=== PATIENT | female | born 1950 | race Caucasian/White ===

== ENCOUNTER 2018-02-28 06:04 | Inpatient (IN) ==
--- NOTE | 2018-02-25 16:29 | MH ---
cc: Rudi Pandey James E MD DATE OF ADMISSION: 02/28/2018 ADMITTING DIAGNOSIS: Lumbar degenerative disk disease. HISTORY OF PRESENT ILLNESS: This is a 67-year-old female who presented to us for evaluation of chronic low back pain and left leg pain. She states that she has had chronic low back pain since she was 26 years old and would have exacerbations and periods where pain would resolve. She states 2-1/2 years ago, she started to develop left leg pain that started in the left buttocks and radiated into the posterior aspect of the left leg and into the left lateral foot. She states the leg pain is affecting her life. She states the left leg becomes so painful with walking that she starts to drag the leg and she is looking for the next available place to sit down. She has had physical therapy. She has been to the pain management and had 10 injections and had discussed a possible spinal stimulator, but they wanted her to see a surgeon first. She has urge incontinence. She has paresthesias in the left lateral calf and lateral aspect of her foot. Her pain resolves if she sits or lies down. If she walks flexed on her cart, this allows her to walk further. PAST MEDICAL HISTORY: Significant for hypothyroidism, migraines, anxiety. MEDICATIONS: She is on 1. Bupropion 150 mg extended release. 2. Butalbital compound with codeine 30/50/325/40 mg. 3. Duloxetine 30 mg delayed release. 4. Fluorouracil 5% topical cream. 5. Gabapentin 300 mg. 6. Liberty 5/325. 7. Ibuprofen 800 mg. This was placed on hold prior to surgical intervention. 8. Levothyroxine 137 mcg. 9. Medrol progesterone 2.5 mg. 10. Meloxicam 15 mg. This was placed on hold prior to surgical intervention. 11. Methocarbamol 500 mg. 12. Potassium citrate 10 mEq extended release. 13. Sertraline 100 mg. 14. Sumatriptan 100 mg. ALLERGIES: SHE HAS NO KNOWN DRUG ALLERGIES. SOCIAL HISTORY: She has never been a smoker. FAMILY HISTORY: Noncontributory. REVIEW OF SYSTEMS: CONSTITUTIONAL: She denies any fever or chills. Ears, Nose and Throat: No pharyngitis, exudate, or bloody drainage from her nose. CARDIOVASCULAR: She denies any chest pain or palpitations. RESPIRATORY: No cough or shortness of breath. GASTROINTESTINAL: No nausea, vomiting, abdominal pain. GENITOURINARY: No dysuria or hematuria. MUSCULOSKELETAL: Positive for chronic low back pain. INTEGUMENTARY: No rashes or pruritus. NEUROLOGIC: No difficulty with speech or memory. PSYCHIATRIC: Positive for anxiety symptoms ENDOCRINE: No polyuria or polydipsia. HEMATOLOGIC: No bruising or bleeding tendencies. PHYSICAL EXAMINATION: HEENT: Head is normocephalic, atraumatic. NECK: Supple. No carotid bruits. LUNGS: Clear to auscultation bilaterally. HEART: Regular rate and rhythm. Normal S1, S2. No murmurs. ABDOMEN: Soft, positive bowel sounds. She is obese. SKIN: No cyanosis or erythema. MUSCULOSKELETAL: She has left EHL weakness at 4/5, otherwise she has 5/5 strength in the lower extremities. She ambulates without any assistive device. NEUROLOGIC: She is awake, alert, and oriented. Cranial nerves 2-12 are grossly intact. Her speech is fluent. Comprehension is good. Sensation is intact in the upper and lower extremities. Reflexes are diminished in the lower extremities. LABORATORY DATA: An MRI of the lumbar spine revealed a severe L4/L5 spinal stenosis from disk protrusion and facet hypertrophy along with a grade 1 spondylolisthesis with degenerative disk disease. She also has disk degeneration at L2-L3 and L5-S1 with overall mild stenosis. IMPRESSION: A 67-year-old female with a chronic history of low back pain with associated neurogenic claudication symptoms which is affecting more so the left leg. Her symptoms worsen with an upright position and activity. She has very limited ambulatory status and inactivity has led to progressive weight gain, which is aggravating her condition. She has undergone physical therapy as well as multiple bouts of interventional pain management with limited temporary relief. She was seen by orthopedic surgery and recommended surgical intervention and she was seen by us for a second opinion. Her MRI of the lumbar spine revealed severe L4/L5 spinal stenosis from disk protrusion and facet hypertrophy along with a grade 1 spondylolisthesis with degenerative disk disease. She also has disk degeneration at L2-L3 and L5-S1 with overall mild stenosis. PLAN: We have discussed treatment options, which include continued conservative treatment measures with physical therapy and pain management versus surgical intervention. The patient is requesting surgical intervention and we have discussed options, which include a more limited L4/L5 decompressive laminectomy versus an L4/L5 transforaminal decompression with interbody fusion. Both procedures were explained using spine models in the office. Given the degenerative disk disease and associated spondylolisthesis, laminectomy without stabilization risks worsening of the spondylolisthesis and recurrent foraminal stenosis. We have discussed both procedures in detail. We have discussed the risks, benefits, alternatives, and recovery time in great detail of the surgical procedures. No guarantees were given as to the results of either procedure. Given her obesity, she is at an increased risk of nonhealing. We have also discussed other associated risks which include, but are not limited to, bleeding, infection, muscle weakness, voice hoarseness, difficulty swallowing, heart attack, stroke, blood clots, nonfusion, scar tissue formation, among others. The patient states that she understands the procedure as well as the risks involved and she is requesting that we proceed and she was therefore scheduled accordingly. WILFRIDO Zaidi MD ESP/ts , 03:32 PM , 03:44 PM
[2018-02-28] MEDS ORDERED: Gelatin Size 100 Topical Foam ONE (06:45)
[2018-02-28] MEDS ORDERED: Bupivacaine/Epinephrine 0.5% Inj 50 ML Vial ONE (06:45)
[2018-02-28] MEDS ORDERED: Thrombin Topical Soln 5,000 UNIT Vial TOPICAL ONE (06:45)
[2018-02-28] MEDS ORDERED: Vancomycin Inj 1,000 MG in Sodium Chlor 0.9% Inj 250 ML IV.SIG PRN (06:55)
[2018-02-28] MEDS ORDERED: Chlorhexidine Gluconate 2% 1 Pack (2 Cloths) TOPICAL PRN (06:56)
[2018-02-28] MEDS ORDERED: Chlorhexidine Gluconate 2% 1 Pack (2 Cloths) TOPICAL ONE (07:00)
[2018-02-28] MEDS ORDERED: Metoprolol Tartrate 25 MG Tablet PO ONE (07:00)
[2018-02-28] MEDS ORDERED: Sodium Chlor 0.9% Inj 500 ML IV.SIG SCH (07:00)
[2018-02-28] MEDS: Sod Chloride 0.9% Inj 1,000 ML IV.SIG SCH (07:42)
[2018-02-28] MEDS ORDERED: [UNRECOGNIZED DRUG - OTHER] IV.CONT ONE (08:37)
[2018-02-28] MEDS ORDERED: Lidocaine PF 1% Inj 5 ML Syringe OTHER ONE (08:37)
[2018-02-28] MEDS ORDERED: Phenylephrine/NS 1000 MCG/10ML Syringe IV.PUSH ONE (08:37)
[2018-02-28] MEDS ORDERED: Neostigmine Inj 5 MG/5 ML Syringe IV.PUSH ONE (08:37)
[2018-02-28] MEDS ORDERED: Glycopyrrolate Inj 1 MG/5 ML Syringe IV.PUSH ONE (08:37)
[2018-02-28] MEDS ORDERED: DEXTROSE IV.CONT ONE (08:37)
[2018-02-28] MEDS ORDERED: [UNRECOGNIZED DRUG - OTHER] PO PRN (12:46)
[2018-02-28] MEDS ORDERED: Aluminum/Magnesium/Simethacone Susp 30 ML UDC PO PRN (12:49)
[2018-02-28] MEDS ORDERED: Bisacodyl 10 MG Supp RECTAL PRN (12:49)
[2018-02-28] MEDS ORDERED: Menthol 5.8 MG Lozenge BUCCAL PRN (12:49)
[2018-02-28] MEDS ORDERED: Acetaminophen 325 MG Tablet PO PRN (12:49)
[2018-02-28] MEDS ORDERED: Calcium Gluconate Inj 1 GM in Sodium Chlor 0.9% Inj 100 ML IV.SIG PRN (12:49)
[2018-02-28] MEDS ORDERED: Magnesium Sulfate Inj 2 GM in Sodium Chlor 0.9% Inj 96 ML IV.SIG PRN (12:49)
[2018-02-28] MEDS ORDERED: Potassium Chlor 20 mEq Premix 20 MEQ/100 ML PIGGYBACK IV.SIG PRN (12:49)
[2018-02-28] MEDS ORDERED: fentaNYL Citrate Inj 100 MCG/2 ML Ampul ONE (12:53)
--- NOTE | 2018-02-28 13:03 | P.OP ---
- Preoperative Diagnosis (1) Lumbar stenosis with neurogenic claudication (2) Spondylolisthesis, lumbar region (3) Lumbar degenerative disc disease (4) Chronic low back pain with left-sided sciatica (5) Lumbar facet arthropathy Date of procedure: 02/28/18 Procedure: Lumbar L4-5 transforaminal interbody fusion; L4-5 decompressive laminectomy; L4- 5 pedicle screw fixation; L4-5 interbody cage placement; microsurgical technique Anesthesia: GETA Surgeon: Sebas Goldman MD Education Managers: Araceli Anna Estimated blood loss (mL): 150 Operation and Findings: This was a difficult case due to the patient body habitus and morbid obesity. The [id number] details of the procedure, indications, alternatives, risks and potential complications were fully discussed with the patient. The patient fully understood. All the questions were answered. No guarantees were given. The patient voiced requesting the procedure and provided informed consents. The patient was offered the alternative of delaying the procedure and continuing with nonsurgical management. Prior to the procedure, the surgical incision was marked in the preoperative surgical holding room, and the procedure, risks, and potential complications revisited with the patient. Placement of electrodes for intraoperative neurophysiological monitoring was completed. The patient was taken to the operative room, and following induction of general anesthesia, endotracheal intubation was performed. A Vernon catheter, bilateral SABINA hose and sequential compression devices were placed and kept throughout the procedure. The patient was positioned prone, over a Wily table over a Rudolph frame. All pressure in the preoperative surgical holding room points were carefully padded. The eyes were tapped shut after ointment was applied by the anesthesiologist to prevent corneal abrasion. A Familia hugger was placed over the exposed lower body to maintain control of the core body temperature. The lumbar region was prepped and draped in the usual sterile fashion. Once the patient was positioned, a localizing cross-table lateral x-ray was performed with a C-arm. A paramedian small incisions was outlined on the skin approximately 3cm left from the midline. The skin incision made with a #10 blade. Small bleeders were controlled with the cautery. The dissection was then carried out into deeper planes and through the thoracolumbar fascia with a Bovie. The intermuscular septum was identified and the mucles were blunted dissected along the septum. The facets and transverse process of left L4-5 levels were exposed and the proper anatomical landmarks were identified. A microsurgical self-retaining retractor was placed on the incision, and a localizing lateralizing cross-table x-ray was performed. Following initiation of general endotracheal anesthesia, the patient had a Vernon catheter placed along with sequential compression devices. A gram of vancomycin was administered intravenously and he was turned in a prone position on a Rudolph frame, on a Wily table, and all pressure points adequately padded. The lumbosacral region was then prepped with Chloraprep and sterilely draped with Ioban along the usual sterile draping. A left paraspinal skin incision was then made extending from the L4-L5 level after infiltrating the skin with 0.5% Marcaine with epinephrine solution extending down through the fascia. The muscle fibers were split using avascular fatty plane and detached from the underlying facets, transverse process and lateral portion of lamina on the right side and a self-retaining retractor used for exposure. Intraoperative fluoroscopy was also used for level of confirmation along with microscope magnification for further dissection. There was significant facet and ligamentum flavum hypertrophy noted at the L4-5 levels along with associated spondylolisthesis. Left L4-5 facet was resected with a drill bit along with the lamina and there was severe foraminal and lateral recess stenosis from hypertrophied ligamentum flavum and facet which were decompressed bilaterally through the unilateral approach. There was significant disc height collapse along with disc protrusion also leading to the foraminal stenosis. Epidural hemostasis was achieved with bipolar cautery and Gelfoam with thrombin. Subsequently entered into the disc space at the L4-5 level with a #15 blade and neftaly were used for discectomy. I then placed PEEK cage packed with local autograft bone and more local autograft bone was packed adjacent to the cage in interspace for added interbody fusion. With placement of the cage, I was able to distract the interspace and opened up the foramen further bilaterally. Subsequently in order to facilitate the fusion and provide stabilization, pedicle screw fixation was undertaken using [employer] spine screws on entry point at the left L4-5 levels at the junction of the transverse process and facet. Subsequently using AP and lateral fluoroscopy tap and screw placement. The screws were then connected with a kiran and locked in place with caps. The construct appeared very secure at this point. The area was then copiously irrigated with Vancomycin solution and powder. The retractors were removed and the bipolar cautery used for hemostasis. The muscle fascia was then approximated using 2-0 Vicryl interrupted stitches and then 3-0 Vicryl subcuticular stitches also placed in interrupted fashion. The final skin closure was completed with Mastisol and Steri-Strips. A sterile dressing was then applied. The patient then turned in supine position, extubated and taken to recovery room. There were no intraoperative complications. All sponge and needle counts were correct at the end of procedure. Estimated blood loss about 150 ml.
[2018-02-28] MEDS ORDERED: *morphine SULFATE 4 MG/ML PERIprocedure ONLY ONE ×2 (13:07→13:18)
[2018-02-28] MEDS ORDERED: *Ondansetron Inj 4 MG/2 ML Vial PERIprocedural Use ONLY ONE (13:18)
--- NOTE | 2018-02-28 13:22 | XR ---
EXAM DATE: 02/28/2018 12:00 AM EDT AGE/SEX: 67 years / Female INDICATIONS: Post-op L4-L5 posterior lumbar fusion. CLINICAL DATA: This is the patient's initial encounter. Patient reports that signs and symptoms have been present for 1 day and indicates a pain score of Nonresponsive. MEDICAL/SURGICAL HISTORY: Non-responsive. Non-responsive. COMPARISON: No prior exams available for comparison. CONCLUSION: Fluoroscopic images during placement of screws and kiran on the right at L4-5. Intervertebral disc darrion ce also seen. Electronically signed by: Rudi Pillai MD 02/28/2018 1:20 PM EDT
[2018-02-28 16:45] LABS: Baso % (Auto) 0.2 % (0.0-2.0); Eos % (Auto) 0.1 % (0.0-4.0); Hematocrit 32.3 % (35.0-46.0); Hemoglobin 10.3 gm/dL (11.6-15.3); Lymph # (Auto) 0.7 th/mm3 (1.0-4.8); Lymph % (Auto) 7.5 % (9.0-44.0); Mean Corpuscular Hemoglobin 27.7 pg (27.0-34.0); Mean Corpuscular Volume 86.6 fL (80.0-100.0); Mean Platelet Volume 9.6 fL (7.0-11.0); Mono # (Auto) 0.2 th/mm3 (0.0-0.9); Mono % (Auto) 2.2 % (0.0-8.0); Neut # (Auto) 8.7 th/mm3 (1.8-7.7); Platelet Count 234 th/mm3 (150-450); Red Blood Count 3.73 mil/mm3 (4.00-5.30); Red Cell Distribution Width 15.3 % (11.6-17.2); White Blood Count 9.6 th/mm3 (4.0-11.0)
[2018-02-28] MEDS: Morphine Inj 4 MG/ML Vial IV.PUSH PRN ×2 (16:58→21:19)
[2018-02-28] MEDS ORDERED: Influenza (Quadrivalent) Vaccine 0.5 ML Syringe IM ONE (17:00)
[2018-02-28 17:17] LABS: Calcium 7.8 mg/dL (8.5-10.1); Carbon Dioxide 27.8 meq/L (21.0-32.0); Magnesium 2.6 mg/dL (1.5-2.5); Potassium 4.1 meq/L (3.5-5.1)
[2018-02-28] MEDS: Methocarbamol 500 MG Tablet PO SCH ×2 (17:23→21:19)
[2018-02-28] MEDS ORDERED: POTASSIUM CITRATE 10 MEQ PO SCH (21:00)
[2018-02-28] MEDS: Senna/Docusate Sodium 8.6/50 MG Tablet PO SCH (21:19)
[2018-02-28] MEDS: Gabapentin 300 MG Capsule PO SCH (21:19)
[2018-03-01] MEDS: Morphine Inj 4 MG/ML Vial IV.PUSH PRN ×3 (01:17→13:24)
[2018-03-01] MEDS: Zolpidem Tartrate 5 MG Tablet PO PRN (01:18)
[2018-03-01] MEDS: Levothyroxine 112 MCG Tablet PO SCH ×2 (04:58→06:00)
[2018-03-01] MEDS: Butalbital/ASA/Caff 50/325/40 Capsule PO PRN ×2 (07:44→15:18)
[2018-03-01] MEDS: Gabapentin 300 MG Capsule PO SCH ×2 (07:59→20:56)
[2018-03-01] MEDS: Sod Chloride 0.9% Inj 1,000 ML IV.SIG SCH (07:59)
[2018-03-01] MEDS: buPROPion 150 MG 12 HR Tablet PO SCH (08:00)
[2018-03-01] MEDS: Methocarbamol 500 MG Tablet PO SCH ×4 (08:00→20:56)
[2018-03-01] MEDS: Calcium/Vitamin D 250/125 MG Tablet PO SCH (08:00)
[2018-03-01] MEDS: Sertraline 100 MG Tablet PO SCH (08:00)
[2018-03-01] MEDS: Senna/Docusate Sodium 8.6/50 MG Tablet PO SCH ×2 (08:00→20:56)
[2018-03-01] MEDS ORDERED: [UNRECOGNIZED DRUG - OTHER] PO SCH (09:00)
[2018-03-01] MEDS ORDERED: PHENTERMINE 37.5 MG PO SCH (09:00)
--- NOTE | 2018-03-01 16:09 | P.PNNS ---
Subjective Interval history: Pt seen and examined this morning. She complains of migraine headache. She usually takes Imitrex for intermittent migraines. She has low back pain. She has some pain in the left lateral leg. She denies any sob or chest pain. <Rudi Pandey - Last Filed: 03/01/18 16:02> Physical Exam Vital signs: Vital Signs 02/28/18 16:49 02/28/18 20:00 03/01/18 00:00 Temperature 98.1 F 97.3 F L 98.7 F Pulse Rate 76 90 94 H Respiratory Rate 18 18 18 Blood Pressure 122/63 122/65 142/63 H Pulse Oximetry 93 L 97 97 03/01/18 07:52 03/01/18 07:54 03/01/18 08:14 Temperature 97.5 F L Pulse Rate 97 H Respiratory Rate 18 17 18 Blood Pressure 120/54 L Pulse Oximetry 93 L 03/01/18 09:09 03/01/18 09:39 03/01/18 09:56 Temperature Pulse Rate 83 Respiratory Rate 18 18 Blood Pressure Pulse Oximetry 96 03/01/18 12:00 03/01/18 12:39 03/01/18 13:09 Temperature 98.4 F Pulse Rate 91 H Respiratory Rate 20 18 15 Blood Pressure 110/62 Pulse Oximetry 98 03/01/18 13:26 Temperature Pulse Rate Respiratory Rate 18 Blood Pressure Pulse Oximetry Intake & Output 02/28/18 03/01/18 03/01/18 18:59 06:59 18:59 Intake Total 2500 / 2500 1125 / 1125 1000 / 1000 Output Total 450 / 450 1450 / 1450 Balance 2049 -325 / -325 1000 / 1000 Weight 123.9 kg 128.8 kg Intake: IV 100 / 100 1125 / 1125 1000 / 1000 NS + KCl 20 mEq Inj 1,000 ML @ 925 / 925 1000 / 1000 100 mls/hr IV.CONT .Q10H [facility] Rx #:[id number] Ancef Inj 1,000 MG In NS Inj 100 / 100 200 / 200 100 ML @ 200 mls/hr IV.SIG Q8H [facility] Rx#:[id number] Anesthesia Amount 2400 / 2400 Output: Urine 1450 / 1450 Estimated Blood Loss 150 / 150 Urine Amount (Catheter) 300 / 300 Indwelling Urethral Catheter 300 / 300 Other: # Voids 1 Date of Last Bowel Movement 02/27/18 02/27/18 02/27/18 Weight On Admission 123.9 kg - Constitutional mild distress (Related to her migraine.), obese, cooperative - Routine HEENT Exam Head: Present: normocephalic, atraumatic Eye: Present: PERRL (Pupils 3mm bilaterally reactive bilaterally.). Absent: conjunctival icterus ENT: Present: oropharynx clear - Routine Neck Exam Present: trachea midline - Routine Respiratory Exam Present: CTA bilaterally (Pt on 3 L via O2 mask.). Absent: respiratory distress , rhonchi, wheezes - Routine Cardiovascular Exam Present: RRR, S1, S2. Absent: murmur - Routine Abdominal Exam Present: soft, normoactive bowel sounds. Absent: distended, firm - Routine Skin Exam Absent: cyanosis, erythema - Routine Neurological Exam Present: alert, moving all extremities, normal speech. Absent: sensory deficit , motor deficit, altered mental status - Routine Psychiatric Exam Present: normal affect, cooperative, anxious (mild anxiety.). Absent: agitated - Urinary Catheter Management Indwelling Urethral Catheter Cath placed during this visit: yes Reason for continuing: Other continuation reason Insertion date: 02/28/18 <Rudi Pandey - Last Filed: 03/01/18 16:02> Vital signs: Vital Signs 02/28/18 16:49 02/28/18 20:00 03/01/18 00:00 Temperature 98.1 F 97.3 F L 98.7 F Pulse Rate 76 90 94 H Respiratory Rate 18 18 18 Blood Pressure 122/63 122/65 142/63 H Pulse Oximetry 93 L 97 97 03/01/18 07:52 03/01/18 07:54 03/01/18 08:14 Temperature 97.5 F L Pulse Rate 97 H Respiratory Rate 18 17 18 Blood Pressure 120/54 L Pulse Oximetry 93 L 03/01/18 09:09 03/01/18 09:39 03/01/18 09:56 Temperature Pulse Rate 83 Respiratory Rate 18 18 Blood Pressure Pulse Oximetry 96 03/01/18 12:00 03/01/18 12:39 03/01/18 13:09 Temperature 98.4 F Pulse Rate 91 H Respiratory Rate 20 18 15 Blood Pressure 110/62 Pulse Oximetry 98 03/01/18 13:26 Temperature Pulse Rate Respiratory Rate 18 Blood Pressure Pulse Oximetry Intake & Output 02/28/18 03/01/18 03/01/18 18:59 06:59 18:59 Intake Total 2500 / 2500 1125 / 1125 1000 / 1000 Output Total 450 / 450 1450 / 1450 Balance 2049 / 2049 -325 / -325 1000 / 1000 Weight 123.9 kg 128.8 kg Intake: IV 100 / 100 1125 / 1125 1000 / 1000 NS + KCl 20 mEq Inj 1,000 ML @ 925 / 925 1000 / 1000 100 mls/hr IV.CONT .Q10H [facility] Rx #:[id number] Ancef Inj 1,000 MG In NS Inj 100 / 100 200 / 200 100 ML @ 200 mls/hr IV.SIG Q8H [facility] Rx#:[id number] Anesthesia Amount 2400 / 2400 Output: Urine 1450 / 1450 Estimated Blood Loss 150 / 150 Urine Amount (Catheter) 300 / 300 Indwelling Urethral Catheter 300 / 300 Other: # Voids 1 Date of Last Bowel Movement 02/27/18 02/27/18 02/27/18 Weight On Admission 123.9 kg - Urinary Catheter Management Indwelling Urethral Catheter Cath placed during this visit: no <Sebas Goldman - Last Filed: 03/01/18 16:24> Assessment and Plan - Assessment (1) Lumbar stenosis with neurogenic claudication Code(s): M48.062 - Spinal stenosis, lumbar region with neurogenic claudication Status: Acute (2) Spondylolisthesis, lumbar region Code(s): M43.16 - Spondylolisthesis, lumbar region Status: Acute (3) Lumbar degenerative disc disease Code(s): M51.36 - Other intervertebral disc degeneration, lumbar region Status : Acute (4) Chronic low back pain with left-sided sciatica Code(s): M54.42 - Lumbago with sciatica, left side; G89.29 - Other chronic pain Status: Acute (5) Lumbar facet arthropathy Code(s): M47.816 - Spondylosis without myelopathy or radiculopathy, lumbar region Status: Acute - Plan A: 67 y/o FM s/p Lumbar L4-5 transforaminal interbody fusion; L4-5 decompressive laminectomy; L4-5 pedicle screw fixation; L4-5 interbody cage placement; microsurgical technique by Sebas Goldman on 02/28/18. P: Pts has gone home to get her imitrex and will be given to pharmacy for her to take. PT oob today with lumbar brace. Continue with pain control Wean off O2. <Rudi Pandey - Last Filed: 03/01/18 16:02> - Attending Attestation The exam, history, and the medical decision-making described in the above note were completed with the assistance of the mid-level provider. I reviewed and agree with the findings presented. I attest that I had a [id number] encounter with the patient on the same day, and personally performed and documented my assessment and findings in the medical record. <Sebas Goldman - Last Filed: 03/01/18 16:24>
[2018-03-02] MEDS: Butalbital/ASA/Caff 50/325/40 Capsule PO PRN (01:47)
[2018-03-02] MEDS: Levothyroxine 112 MCG Tablet PO SCH (08:43)
[2018-03-02] MEDS: Calcium/Vitamin D 250/125 MG Tablet PO SCH ×2 (08:43→09:03)
[2018-03-02] MEDS: Senna/Docusate Sodium 8.6/50 MG Tablet PO SCH ×2 (08:44→21:06)
[2018-03-02] MEDS: Gabapentin 300 MG Capsule PO SCH ×2 (08:44→21:06)
[2018-03-02] MEDS: Methocarbamol 500 MG Tablet PO SCH ×4 (08:44→21:06)
[2018-03-02] MEDS: buPROPion 150 MG 12 HR Tablet PO SCH (08:44)
[2018-03-02] MEDS: Sertraline 100 MG Tablet PO SCH (08:44)
[2018-03-02] MEDS: Sod Chloride 0.9% Inj 1,000 ML IV.SIG SCH (09:00)
[2018-03-02] MEDS: oxyCODONE/Acetaminophen 10/325 Tablet PO PRN ×3 (13:24→21:48)
--- NOTE | 2018-03-02 17:05 | P.PNNS ---
Subjective Interval history: Pt awake and alert. Complains of headache. She complains of nausea and vomited in front of me. She states she is feeling miserable. She has had surgery in the past and was on Percocet and tolerated that okay. She has also had Toradol in the past and did okay with that. <Rudi Pandey - Last Filed: 03/02/18 17:05> Physical Exam Vital signs: Vital Signs 03/01/18 17:05 03/01/18 19:57 03/01/18 23:37 Temperature 100.2 F H Pulse Rate 93 H 85 Respiratory Rate 15 18 18 Blood Pressure 142/60 H Pulse Oximetry 92 L 99 03/02/18 03:36 03/02/18 08:00 03/02/18 12:00 Temperature 98.1 F 98.3 F 97.7 F Pulse Rate 81 74 71 Respiratory Rate 18 18 18 Blood Pressure 112/54 L 108/55 L 113/56 L Pulse Oximetry 97 99 98 Intake & Output 03/01/18 03/02/18 03/02/18 18:59 06:59 18:59 Intake Total 1650 / 1650 480 / 480 Output Total 1650 / 1650 1999 Balance 0 / 0 -1520 / -1520 Weight 127.6 kg Intake: IV 1000 / 1000 NS + KCl 20 mEq Inj 1,000 ML @ 1000 / 1000 100 mls/hr IV.CONT .Q10H [facility] Rx #:[id number] Oral 650 / 650 480 / 480 Output: Urine 1650 / 1650 Urine Amount (Catheter) 1999 Indwelling Urethral Catheter 1999 Other: Date of Last Bowel Movement 02/27/18 02/27/18 02/27/18 # Bowel Movements 0 - Constitutional mild distress (Related to headache, nausea and vomiting.), obese, cooperative - Routine HEENT Exam Head: Present: normocephalic, atraumatic Eye: Present: PERRL. Absent: conjunctival icterus ENT: Present: oropharynx clear - Routine Respiratory Exam Present: CTA bilaterally. Absent: respiratory distress, rhonchi, wheezes - Routine Cardiovascular Exam Present: RRR, S1, S2. Absent: murmur - Routine Abdominal Exam Present: soft, normoactive bowel sounds. Absent: distended, firm - Routine Skin Exam Absent: cyanosis, erythema - Routine Neurological Exam Present: alert, moving all extremities, normal speech. Absent: sensory deficit , motor deficit, altered mental status - Routine Psychiatric Exam Present: cooperative. Absent: anxious, agitated - Urinary Catheter Management Indwelling Urethral Catheter Cath placed during this visit: yes Reason for continuing: Other continuation reason Insertion date: 02/28/18 <Rudi Pandey - Last Filed: 03/02/18 17:05> Vital signs: Vital Signs 03/01/18 19:57 03/01/18 23:37 03/02/18 03:36 Temperature 100.2 F H 98.1 F Pulse Rate 93 H 85 81 Respiratory Rate 18 18 18 Blood Pressure 142/60 H 112/54 L Pulse Oximetry 92 L 99 97 03/02/18 08:00 03/02/18 12:00 Temperature 98.3 F 97.7 F Pulse Rate 74 71 Respiratory Rate 18 18 Blood Pressure 108/55 L 113/56 L Pulse Oximetry 99 98 Intake & Output 03/01/18 03/02/18 03/02/18 18:59 06:59 18:59 Intake Total 1650 / 1650 480 / 480 Output Total 1650 / 1650 1999 Balance 0 / 0 -1520 / -1520 Weight 127.6 kg Intake: IV 1000 / 1000 NS + KCl 20 mEq Inj 1,000 ML @ 1000 / 1000 100 mls/hr IV.CONT .Q10H [facility] Rx #:[id number] Oral 650 / 650 480 / 480 Output: Urine 1650 / 1650 Urine Amount (Catheter) 1999 Indwelling Urethral Catheter 1999 Other: Date of Last Bowel Movement 02/27/18 02/27/18 02/27/18 # Bowel Movements 0 - Urinary Catheter Management Indwelling Urethral Catheter Cath placed during this visit: no <Sebas Goldman - Last Filed: 03/02/18 18:07> Assessment and Plan - Assessment (1) Lumbar stenosis with neurogenic claudication Code(s): M48.062 - Spinal stenosis, lumbar region with neurogenic claudication Status: Acute (2) Spondylolisthesis, lumbar region Code(s): M43.16 - Spondylolisthesis, lumbar region Status: Acute (3) Lumbar degenerative disc disease Code(s): M51.36 - Other intervertebral disc degeneration, lumbar region Status : Acute (4) Chronic low back pain with left-sided sciatica Code(s): M54.42 - Lumbago with sciatica, left side; G89.29 - Other chronic pain Status: Acute (5) Lumbar facet arthropathy Code(s): M47.816 - Spondylosis without myelopathy or radiculopathy, lumbar region Status: Acute - Plan A: 67 y/o FM s/p Lumbar L4-5 transforaminal interbody fusion; L4-5 decompressive laminectomy; L4-5 pedicle screw fixation; L4-5 interbody cage placement; microsurgical technique by Sebas Goldman on 02/28/18. P: Pt was given phenergan for n/v. I suspect her n/v is medication related since we are now pod #2. I d/c her Hydrocodone and wrote for Percocet 10. I also wrote for a Toradol injection x 1 since she vomited her pain medication given an hr ago. PT oob today with lumbar brace when she is feeling more comfortable currently actively vomiting. Continue with pain control Wean off O2. Addendum: I called nurse today at end of the day for an update and she said she is doing much better on Percocet and denies any pain. She was also able to sleep after the Toradol injection. Her nausea is now controlled with Phenergan and off the Hydrocodone. <Rudi Pandey - Last Filed: 03/02/18 17:05> - Attending Attestation The exam, history, and the medical decision-making described in the above note were completed with the assistance of the mid-level provider. I reviewed and agree with the findings presented. I attest that I had a [id number] encounter with the patient on the same day, and personally performed and documented my assessment and findings in the medical record. Migraine headache are improved incisional pain well controlled. Lumbar dressing changed with no drainage noted. Out of bed with physical therapy. Discussed with her and nursing staff. <Sebas Goldman - Last Filed: 03/02/18 18:07>
[2018-03-02] MEDS: Zolpidem Tartrate 5 MG Tablet PO PRN (21:06)
[2018-03-03] MEDS: Morphine Inj 4 MG/ML Vial IV.PUSH PRN ×3 (01:05→05:33)
[2018-03-03] MEDS: oxyCODONE/Acetaminophen 10/325 Tablet PO PRN ×5 (02:11→20:37)
[2018-03-03] MEDS: Levothyroxine 112 MCG Tablet PO SCH (05:34)
[2018-03-03] MEDS: Calcium/Vitamin D 250/125 MG Tablet PO SCH (08:01)
[2018-03-03] MEDS: Methocarbamol 500 MG Tablet PO SCH ×4 (08:01→20:38)
[2018-03-03] MEDS: Sertraline 100 MG Tablet PO SCH (08:01)
[2018-03-03] MEDS: buPROPion 150 MG 12 HR Tablet PO SCH (08:02)
[2018-03-03] MEDS: Senna/Docusate Sodium 8.6/50 MG Tablet PO SCH ×2 (08:02→20:38)
[2018-03-03] MEDS: Gabapentin 300 MG Capsule PO SCH ×2 (08:02→20:38)
--- NOTE | 2018-03-03 09:33 | P.PNNS ---
Subjective Interval history: Pt awakens but fatigued. She didn't sleep well last night secondary to left lateral leg pain down into the bottom of the left foot. She states the nausea is improved. Headaches improved with Imitrex. <Rudi Pandey - Last Filed: 03/03/18 09:26> Physical Exam Vital signs: Vital Signs 03/02/18 12:00 03/02/18 16:00 03/02/18 20:00 Temperature 97.7 F 97.4 F L 97.6 F Pulse Rate 71 68 70 Respiratory Rate 18 18 18 Blood Pressure 113/56 L 105/62 135/76 Pulse Oximetry 98 94 L 97 03/03/18 00:00 03/03/18 04:00 03/03/18 07:48 Temperature 97.5 F L 98.3 F 97.6 F Pulse Rate 78 79 79 Respiratory Rate 19 20 17 Blood Pressure 155/81 H 161/71 H Pulse Oximetry 93 L 95 91 L 03/03/18 08:32 03/03/18 08:33 Temperature Pulse Rate Respiratory Rate 18 18 Blood Pressure Pulse Oximetry Intake & Output 03/02/18 03/03/18 03/03/18 18:59 06:59 18:59 Intake Total 1000 / 1000 1000 / 1000 Output Total 850 / 850 1325 / 1325 Balance 150 / 150 -325 / -325 Weight 127 kg Intake: IV 1000 / 1000 1000 / 1000 NS + KCl 20 mEq Inj 1,000 ML @ 1000 / 1000 1000 / 1000 100 mls/hr IV.CONT .Q10H [facility] Rx #:[id number] Output: Urine 850 / 850 1325 / 1325 Other: Date of Last Bowel Movement 02/27/18 02/27/18 - Constitutional no acute distress, obese, cooperative - Routine HEENT Exam Head: Present: normocephalic, atraumatic Eye: Present: PERRL. Absent: conjunctival icterus ENT: Absent: oropharynx clear - Routine Neck Exam Present: trachea midline - Routine Respiratory Exam Present: CTA bilaterally. Absent: respiratory distress, rhonchi, wheezes - Routine Cardiovascular Exam Present: RRR, S1, S2. Absent: murmur - Routine Abdominal Exam Present: soft, normoactive bowel sounds. Absent: distended - Routine Skin Exam Absent: cyanosis, erythema - Routine Neurological Exam Present: moving all extremities. Absent: alert (Pt didn't sleep well last night and had Morphine this morning.), motor deficit - Routine Psychiatric Exam Present: cooperative. Absent: anxious, agitated - Urinary Catheter Management Indwelling Urethral Catheter Cath placed during this visit: yes Reason for continuing: Other continuation reason Insertion date: 02/28/18 <Rudi Pandey - Last Filed: 03/03/18 09:26> Vital signs: Vital Signs 03/02/18 20:00 03/03/18 00:00 03/03/18 04:00 Temperature 97.6 F 97.5 F L 98.3 F Pulse Rate 70 78 79 Respiratory Rate 18 19 20 Blood Pressure 135/76 155/81 H Pulse Oximetry 97 93 L 95 03/03/18 07:48 03/03/18 08:32 03/03/18 08:33 Temperature 97.6 F Pulse Rate 79 Respiratory Rate 17 18 18 Blood Pressure 161/71 H Pulse Oximetry 91 L 03/03/18 10:21 03/03/18 12:00 03/03/18 12:34 Temperature 98.4 F Pulse Rate 80 Respiratory Rate 18 16 18 Blood Pressure 114/55 L Pulse Oximetry 92 L Intake & Output 03/02/18 03/03/18 03/03/18 18:59 06:59 18:59 Intake Total 1000 / 1000 1000 / 1000 1000 / 1000 Output Total 850 / 850 1325 / 1325 350 / 350 Balance 150 / 150 -325 / -325 650 / 650 Weight 127 kg Intake: IV 1000 / 1000 1000 / 1000 1000 / 1000 NS + KCl 20 mEq Inj 1,000 ML @ 1000 / 1000 1000 / 1000 1000 / 1000 100 mls/hr IV.CONT .Q10H [facility] Rx #:[id number] Output: Urine 850 / 850 1325 / 1325 350 / 350 Other: # Voids 1 Date of Last Bowel Movement 02/27/18 02/27/18 - Urinary Catheter Management Indwelling Urethral Catheter Cath placed during this visit: no <Sebas Goldman - Last Filed: 03/03/18 16:01> Assessment and Plan - Assessment (1) Lumbar stenosis with neurogenic claudication Code(s): M48.062 - Spinal stenosis, lumbar region with neurogenic claudication Status: Acute (2) Spondylolisthesis, lumbar region Code(s): M43.16 - Spondylolisthesis, lumbar region Status: Acute (3) Lumbar degenerative disc disease Code(s): M51.36 - Other intervertebral disc degeneration, lumbar region Status : Acute (4) Chronic low back pain with left-sided sciatica Code(s): M54.42 - Lumbago with sciatica, left side; G89.29 - Other chronic pain Status: Acute (5) Lumbar facet arthropathy Code(s): M47.816 - Spondylosis without myelopathy or radiculopathy, lumbar region Status: Acute - Plan A: 67 y/o FM s/p Lumbar L4-5 transforaminal interbody fusion; L4-5 decompressive laminectomy; L4-5 pedicle screw fixation; L4-5 interbody cage placement; microsurgical technique by Sebas Goldman on 02/28/18. P: Will give pt shot of Toradol and get her oob with PT. I have discussed with PT. PT oob today with lumbar brace when she is feeling more comfortable currently actively vomiting. Continue with pain control Continue with antiemetics. <Rudi Pandey - Last Filed: 03/03/18 09:26> - Attending Attestation The exam, history, and the medical decision-making described in the above note were completed with the assistance of the mid-level provider. I reviewed and agree with the findings presented. I attest that I had a [id number] encounter with the patient on the same day, and personally performed and documented my assessment and findings in the medical record. Ambulated with physical therapy today and headaches have resolved. wants to take her home possibly tomorrow with home health care. <Sebas Goldman - Last Filed: 03/03/18 16:01>
[2018-03-03] MEDS: Butalbital/ASA/Caff 50/325/40 Capsule PO PRN (22:41)
[2018-03-03] MEDS: Zolpidem Tartrate 5 MG Tablet PO PRN (22:41)
[2018-03-04] MEDS: oxyCODONE/Acetaminophen 10/325 Tablet PO PRN ×4 (02:50→15:13)
[2018-03-04] MEDS: Levothyroxine 112 MCG Tablet PO SCH (05:06)
[2018-03-04] MEDS: Butalbital/ASA/Caff 50/325/40 Capsule PO PRN (08:26)
[2018-03-04] MEDS: Methocarbamol 500 MG Tablet PO SCH ×2 (08:27→12:50)
[2018-03-04] MEDS: Senna/Docusate Sodium 8.6/50 MG Tablet PO SCH (08:28)
[2018-03-04] MEDS: buPROPion 150 MG 12 HR Tablet PO SCH (08:28)
[2018-03-04] MEDS: Gabapentin 300 MG Capsule PO SCH (08:28)
[2018-03-04] MEDS: Calcium/Vitamin D 250/125 MG Tablet PO SCH (08:28)
[2018-03-04] MEDS: Sertraline 100 MG Tablet PO SCH (08:28)
--- NOTE | 2018-03-04 10:09 | P.PNNS ---
Subjective Interval history: Pt awakens but drowsy. States back pain and leg pain improving. She has some headaches intermittently but not as bad. Pts wants to take her home. Physical Exam Vital signs: Vital Signs 03/03/18 10:21 03/03/18 12:00 03/03/18 12:34 Temperature 98.4 F Pulse Rate 80 Respiratory Rate 18 16 18 Blood Pressure 114/55 L Pulse Oximetry 92 L 03/03/18 16:29 03/03/18 17:00 03/03/18 20:35 Temperature 98.6 F 97.9 F Pulse Rate 80 75 Respiratory Rate 14 18 17 Blood Pressure 138/61 127/61 Pulse Oximetry 92 L 94 L 03/03/18 23:11 03/04/18 00:00 03/04/18 01:24 Temperature 97.9 F Pulse Rate 77 Respiratory Rate 18 17 19 Blood Pressure 147/68 H Pulse Oximetry 96 03/04/18 08:00 Temperature 97.8 F Pulse Rate 85 Respiratory Rate 18 Blood Pressure 156/65 H Pulse Oximetry 95 Intake & Output 03/03/18 03/04/18 03/04/18 18:59 06:59 18:59 Intake Total 1480 / 1480 Output Total 350 / 350 Balance 1130 / 1130 Weight 127 kg Intake: IV 1000 / 1000 NS + KCl 20 mEq Inj 1,000 ML @ 1000 / 1000 100 mls/hr IV.CONT .Q10H [facility] Rx #:[id number] Oral 480 / 480 Output: Urine 350 / 350 Other: # Voids 4 4 Date of Last Bowel Movement 02/27/18 - Constitutional no acute distress, obese, cooperative - Routine HEENT Exam Head: Present: normocephalic, atraumatic Eye: Present: PERRL. Absent: conjunctival icterus ENT: Present: oropharynx clear - Routine Neck Exam Present: trachea midline - Routine Respiratory Exam Present: CTA bilaterally. Absent: respiratory distress, rhonchi, wheezes - Routine Cardiovascular Exam Present: RRR, S1, S2. Absent: murmur - Routine Abdominal Exam Present: soft, normoactive bowel sounds. Absent: distended, firm - Routine Skin Exam Absent: cyanosis, erythema - Routine Neurological Exam Present: moving all extremities. Absent: alert (Drowsy this morning was has already been up to a chair.), sensory deficit, motor deficit - Routine Psychiatric Exam Present: normal affect, cooperative. Absent: anxious, agitated - Urinary Catheter Management Indwelling Urethral Catheter Cath placed during this visit: yes, but has since been removed by the nurse Reason for continuing: Decision to DC catheter Insertion date: 02/28/18 Removal date: 03/03/18 Removal time: 09:45 Assessment and Plan - Assessment (1) Lumbar stenosis with neurogenic claudication Code(s): M48.062 - Spinal stenosis, lumbar region with neurogenic claudication Status: Acute (2) Spondylolisthesis, lumbar region Code(s): M43.16 - Spondylolisthesis, lumbar region Status: Acute (3) Lumbar degenerative disc disease Code(s): M51.36 - Other intervertebral disc degeneration, lumbar region Status : Acute (4) Chronic low back pain with left-sided sciatica Code(s): M54.42 - Lumbago with sciatica, left side; G89.29 - Other chronic pain Status: Acute (5) Lumbar facet arthropathy Code(s): M47.816 - Spondylosis without myelopathy or radiculopathy, lumbar region Status: Acute - Plan A: 67 y/o FM s/p Lumbar L4-5 transforaminal interbody fusion; L4-5 decompressive laminectomy; L4-5 pedicle screw fixation; L4-5 interbody cage placement; microsurgical technique by Sebas Goldman on 02/28/18. P: Pt feeling better with pain controlled on current medications. PT this morning. Pts request discharge home. Change bandage daily.
--- NOTE | 2018-03-04 10:20 | P.DCO ---
- Diagnosis (1) Lumbar stenosis with neurogenic claudication Status: Acute (2) Spondylolisthesis, lumbar region Status: Acute (3) Lumbar degenerative disc disease Status: Acute (4) Chronic low back pain with left-sided sciatica Status: Acute (5) Lumbar facet arthropathy Status: Acute - Physical Therapy Order: Evaluate and treat, Improve ambulation, Strength and gait training - Home Health Nursing Order: Wound care and dressing changes, Nursing assessment with vital signs - Certification I have seen patient Laurita Ireland on 03/04/18. My clinical findings support the need for the requested home health care services because: Deconditioned with increased weakness, Limited ability to care for self, Impaired cognition/judgement, High risk of falls I certify that my clinical findings support that this patient is homebound because: Post-op weakness, Unsteady gait/balance, Unable to use public transportation
[2018-03-04 13:16] VITALS: BP 148/65; PULSE 79; RESP 16; TEMP 98; O2SAT 88
== END 2018-03-04 15:24 | disposition home health service (06) ==
LOC: HSDI 06:04 → N06 15:52
PROVIDERS: ADMIT Neurological Surgery; ATTEND Neurological Surgery